=== PATIENT | male | born 1990 | race Hispanic/Latino ===

== ENCOUNTER 2016-10-01 11:26 | Inpatient (IN) | payer SELFPAY ==
--- NOTE | 2016-10-01 12:33 | ED PDOC ---
HPI: Psych/Substance Abuse Time Seen by Provider: 10/01/16 12:07 Chief Complaint (Nursing): Psychiatric Evaluation Chief Complaint (Provider): Crisis Evaluation History Per: Patient History/Exam Limitations: no limitations Onset/Duration Of Symptoms: Unknown Current Symptoms Are (Timing): Still Present Suicide/Self Injury Attempted (Context): None Modifying Factor(s): None Severity: Mild Additional Complaint(s): Patient is a 25 year old male brought in by EMS for a crisis evaluation status post [place] the [place]. As per EMS, patient was found in hospital socks without shoes and per EMS, patient apparently eloped from a hospital in [place]. Upon arrival, he denies suicidal ideation, homicidal ideation, hearing voices, or hallucinations. Patient states that he is not homeless and he lives "in many places." Patient states that he does not take any meds at home. PMD: none Past Medical History Reviewed: Historical Data, Nursing Documentation, Vital Signs Vital Signs: Last Vital Signs Temp 98.3 F 10/01/16 11:40 Pulse 103 H 10/01/16 11:40 Resp 20 10/01/16 11:40 BP 158/99 H 10/01/16 11:40 Pulse Ox 100 10/01/16 11:40 - Medical History PMH: No Chronic Diseases - Surgical History Surgical History: No Surg Hx - Family History Family History: States: No Known Family Hx - Living Arrangements Living Arrangements: With Family - Social History Current smoker - smoking cessation education provided: No Alcohol: None Drugs: Denies - Home Medications Home Medications: Ambulatory Orders Medication Instructions Recorded No Known Home Med 10/01/16 - Allergies Allergies/Adverse Reactions: Allergies Allergy/AdvReac Type Severity Reaction Status Date / Time No Known Allergies Allergy Verified 10/01/16 11:58 Review of Systems ROS Statement: Except As Marked, All Systems Reviewed And Found Negative Constitutional: Negative for: Fever Respiratory: Negative for: Cough Gastrointestinal: Negative for: Nausea, Vomiting Psych: Positive for: Other (EDP). Negative for: Psychosis (denies auditory or visual hallucinations), Suicidal ideation (denies SI or HI) Physical Exam - Reviewed Nursing Documentation Reviewed: Yes Vital Signs Reviewed: Yes - Physical Exam Appears: Positive for: Well, Non-toxic, No Acute Distress Head Exam: Positive for: ATRAUMATIC, NORMAL INSPECTION, NORMOCEPHALIC Skin: Positive for: Normal Color, Warm, DRY Eye Exam: Positive for: Normal appearance, EOMI Neck: Positive for: Normal, Painless ROM Cardiovascular/Chest: Positive for: Regular Rate, Rhythm. Negative for: Gallop , Murmur Respiratory: Positive for: Normal Breath Sounds. Negative for: Accessory Muscle Use, Rhonchi, Respiratory Distress Extremity: Positive for: Normal ROM, Swelling (bilateral non-pitting pedal edema ), Other (slight erythema to feet bilaterally with no cellulitis ) Neurologic/Psych: Positive for: Alert, Oriented, Mood/Affect (anxious) - Laboratory Results Result Diagrams: 10/01/16 13:30 10/01/16 13:30 - ECG O2 Sat by Pulse Oximetry: 100 (RA) Pulse Ox Interpretation: Normal Medical Decision Making Medical Decision Making: Time: 12:10 Impression: Crisis Eval Plan: Alcohol Serum CMP Drug Screen CBC 1:1 Observation for risk of elopement UA Crisis Eval Admit to ED observation Patient initially refused to have labs drawn unless we contact his stock pitcher in [facility] for her permission. Patient does not have contact information for his stock pitcher. He was eventually able to be redirected and did allow for blood draw. He also provided contact information for his brother, Bear [phone]. Message was left for brother who called back and informed PA that patient went missing one week ago and he nor his parents have not heard from him until today. Brother states patient's father will come to ED. Scribe Attestation: Documented by Wallace Nichols acting as a scribe for Heidi Magana. Provider Attestation: All medical record entries made by the Scribe were at my direction and personally dictated by me. I have reviewed the chart and agree that the record accurately reflects my personal performance of the history, physical exam, medical decision making, and the department course for this patient. I have also personally directed, reviewed, and agree with the discharge instructions and disposition. ED OBSERVATION Date of observation admission: 10/01/16 Time of observation admission: 12:36 - Observation admission statement Patient is being placed in observation because:: EDP, elopement risk, monitor patient pending medical and psychiatric evaluation. - Goals of Observation Goals of observation are:: EDP, elopement risk, monitor patient pending medical and psychiatric evaluation. - Progress Note Progress Note: 10/01/16 14:57 Labs are resulted. Patient is not asleep, arousable. Pending urine collection and crisis eval. 10/01/16 16:25 Patient is asleep but arousable, seen by crisis 10/01/16 19:00 Patient was seen by crisis counselor. As per counselor and Dr. Pino, psychiatrist admissions rn, patient does meet criteria for admission. He agrees to stay and sign himself in. Patient is medically stable for psychiatric admission. 10/01/16 19:58 Patient's father arrived at Hospital and spoke with crisis counselor at length. 10/01/16 21:25 Patient is sleeping, arousable, vital signs stable. He is stable for transfer to floor. Disposition - Clinical Impression Clinical Impression: Schizophrenia - Patient ED Disposition Is Patient to be Admitted: Yes - Disposition Disposition Time: 21:23 Condition: FAIR - Pt Status Changed To: Hospital Disposition Of: Inpatient - Admit Certification Admit to Inpatient:: After my assessment, the patient will require hospitalization for at least two midnights. This is because of the severity of symptoms shown, intensity of services needed, and/or the medical risk in this patient being treated as an outpatient. - POA Present On Arrival: None Results - Lab Results Lab Results: 10/01/16 10/01/16 16:44 13:30 WBC 12.7 H RBC 4.72 Hgb 13.9 Hct 40.9 MCV 86.5 MCH 29.4 MCHC 34.0 RDW 14.2 Plt Count 330 MPV 9.8 Neut % (Auto) 72.9 Lymph % (Auto) 15.4 L [place] % (Auto) 10.2 H Eos % (Auto) 1.1 Baso % (Auto) 0.4 Neut # 9.3 H Lymph # 2.0 Llano # 1.3 H Eos # 0.1 Baso # 0.1 Sodium 143 Potassium 3.9 Chloride 104 Carbon Dioxide 25 Anion Gap 18 BUN 8 L Creatinine 0.8 Est GFR ( Amer) > 60 Est GFR (Non-Af Amer) > 60 Random Glucose 103 Calcium 9.5 Total Bilirubin 0.7 AST 76 H ALT 66 Alkaline Phosphatase 82 Total Protein 7.6 Albumin 4.3 Globulin 3.3 Albumin/Globulin Ratio 1.3 Urine Color Yellow Urine Clarity Clear Urine pH 7.0 Ur Specific Grant 1.008 Urine Protein Negative Urine Glucose (UA) Neg Urine Ketones Trace Urine Blood Negative Urine Nitrate Negative Urine Bilirubin Negative Urine Urobilinogen 0.2-1.0 Ur Leukocyte Esterase Neg Urine RBC (Auto) < 1 Urine Microscopic WBC 1 Urine Bacteria Rare Urine Opiates Screen Negative Urine Methadone Screen Negative Ur Barbiturates Screen Negative Ur Phencyclidine Scrn Negative Ur Amphetamines Screen Negative U Benzodiazepines Scrn Negative U Oth Cocaine Metabols Negative U Cannabinoids Screen Negative Alcohol, Quantitative < 10
[2016-10-01 13:58] LABS: BASO # 0.1 K/uL (0.0-0.2); BASO % 0.4 % (0.0-2.0); EOS # 0.1 K/uL (0.0-0.7); EOS % 1.1 % (0.0-4.0); HEMATOCRIT 40.9 % (35.0-51.0); LYMPH % 15.4 % (20.0-40.0); MEAN CELL VOLUME 86.5 fl (80.0-94.0); MEAN CORPUSCULAR HEMOGLOBIN 29.4 pg (27.0-31.0); MEAN PLATELET VOLUME 9.8 fl (7.2-11.7); MONO # 1.3 K/uL (0.0-0.8); MONO % 10.2 % (0.0-10.0); NEUT # 9.3 K/uL (1.8-7.0); NEUT % 72.9 % (50.0-75.0); NRBC % 0.1 % (0.0-0.0); RED CELL DISTRIBUTION WIDTH 14.2 % (11.5-14.5); WHITE BLOOD COUNT 12.7 K/uL (4.8-10.8)
[2016-10-01 14:06] LABS: ALB/GLOB RATIO 1.3 (1.0-2.1); ALCOHOL SERUM < 10 mg/dl (0-10); ALKALINE PHOSPHATASE 82 U/L (38-126); ALT/SGPT 66 U/L (21-72); AST/SGOT 76 U/L (17-59); BILIRUBIN,TOTAL 0.7 mg/dl (0.2-1.3); BLOOD UREA NITROGEN 8 mg/dl (9-20); CALCIUM 9.5 mg/dL (8.4-10.2); CARBON DIOXIDE 25 mmol/L (22-30); CHLORIDE 104 mmol/L (98-107); GFR AFRICAN-AMERICAN > 60; GLUCOSE,RANDOM 103 mg/dL (75-110); POTASSIUM 3.9 MMOL/L (3.6-5.0); SODIUM 143 mmol/l (132-148); TOTAL PROTEIN 7.6 G/DL (6.3-8.2)
[2016-10-01 16:49] LABS: RBC URINE < 1 /hpf (0-3); URINE BACTERIA RARE (<OCC); URINE BILIRUBIN NEGATIVE (NEGATIVE); URINE BLOOD NEGATIVE (NEGATIVE); URINE COLOR YELLOW (YELLOW); URINE GLUCOSE (UA) NEG (Normal); URINE KETONE TRACE mg/dL (NEGATIVE); URINE LEUKOCYTE ESTERASE NEG Leu/uL (Negative); URINE PROTEIN NEGATIVE (NEGATIVE); URINE UROBILINOGEN 0.2-1.0 mg/dL (0.2-1.0); WBC URINE 1 /hpf (0-5)
[2016-10-01 19:31] VITALS: O2SAT 100
[2016-10-01] MEDS ORDERED: DiphenhydrAMINE 50 mg/ml Inj IM PRN (23:18)
[2016-10-01] MEDS ORDERED: Alum-Mag Hydrox-Simethicone Susp (30 mL) PO PRN (23:18)
[2016-10-01] MEDS ORDERED: Magnesium Hydroxide Susp 30 ml UD PO PRN (23:18)
[2016-10-02 07:39] LABS: T4 7.17 ug/dl (5.5-11.0)
[2016-10-02 07:53] LABS: THYROID STIMULATING HORMONE 0.56 mIU/ML (0.46-4.68)
--- NOTE | 2016-10-02 14:17 | PCM.PSYCH ---
Initial Psychiatric Evaluation - Initial Psychiatric Evaluation Type of Admission: Voluntary Legal Status: Capacity Chief Complaint (in patient's own words): i am fit to make my own decisions and i don't want to be here Patient's Reaction to Hospitalization: "be careful what you say and write because of litigation" History of Present Illness and Precipitating Events: 25 yo male who [facility] and ended up in [place] in hospital attire without shoes and was brought to the er. pt is a "missing person" for the last week. he states he was only in hospital for "excessive celebration" his speech is rapid, he is grandiose and states he is a victim of a hostile workplace that has turned into a case where he is being accused of harrassment. he continues to mention that he is trying to work to make money to get back together with his fiancee. 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 he does not believe he has a mental illness. he reports that he only signed in so he could eat breakfast and then go home. he mentions that he might be prejudiced against " one druze person" but that doesn't make him mistrust the "other 3.5 million druze americans. he is paranoid about why team is asking for his bloodwork and mentions "i know you are checking my body temperature." Current Medications: Active Medications Generic Name Dose Route Start Last Admin Trade Name Adamq PRN Reason Stop Dose Admin Acetaminophen 650 mg 10/01/16 23:18 Tylenol 325mg Tab PO Q4 PRN pain nlevel 1-6 Al Hydrox/Mg Hydrox/Simethicone 30 ml 10/01/16 23:18 Maalox Plus 30 Ml PO Q4 PRN Dyspepsia Diphenhydramine HCl 50 mg 10/01/16 23:18 Benadryl PO Q6 PRN Extrapyramidal Symptoms Diphenhydramine HCl 50 mg 10/01/16 23:18 Benadryl IM Q6 PRN Extrapyramidal S/S Unable PO Haloperidol 5 mg 10/01/16 23:18 Haldol PO Q4 PRN Agitation Haloperidol Lactate 5 mg 10/01/16 23:18 Haldol IM Q4 PRN Agitation, Unable to Take PO Lorazepam 2 mg 10/01/16 23:18 Ativan PO Q4 PRN Anxiety/Agitation Lorazepam 2 mg 10/01/16 23:18 Ativan IM Q4 PRN Anxiety/Agitation,Unable PO Magnesium Hydroxide 30 ml 10/01/16 23:18 Milk Of Magnesia PO HS PRN Constipation Past Psychiatric History - Past Psychiatric History Previous Treatment History: Inpatient History of Abuse: does not answer History of ETOH/Drug Use: does not give answers. uds negative. admits to alcohol use History of Family Illness: does not answer Pertinent Medical Hx (Current Medical&Sleep Prob, Allergies): Allergies Allergy/AdvReac Type Severity Reaction Status Date / Time No Known Allergies Allergy Verified 10/01/16 11:58 No Known Home Med 10/01/16 Review of Systems - Psychiatric Psychiatric: As Per HPI Mental Status Examination - Personal Presentation Personal Presentation: Looks stated age - Affect Affect: Broad - Motor Activity Motor Activity: Calm - Reliability in Providing Information Reliability in Providing Information: Poor, due to altered mood - Speech Speech: Irrelevant - Mood Mood: Euphoric - Formal Thought Process Formal Thought Process: Loosening of associations, Flight of ideas - Hallucinations/Delusions Delusions: Granduer - Obsessions/Compulsions Obsessions: No Compulsions: No - Cognitive Functions Orientation: Person, Place, Situation, Time Sensorium: Alert Attention/Concentration: Easily distracted Abstract Thinking: As evidence by abstract perception of proverbs Estimate of Intelligence: Average Judgement: Imparied, as evidence by: Lack of insight into illness (denies needing help) Memory: Recent intact, as evidence by: Ability to recall events of the day, Remote intact, as evidenced by: Abilit to recall sig. life events - Risk Risk: Suicidal (denies suicidal thoughts), Elopement, Diminished functioning - Strength & Assets Inventory Strength & Assets Inventory: Intelligence - Limitations Limitations: Other (poor insight) DSM 5 DX - DSM 5 DSM 5 Diagnosis: bipolar disorder, manic - Recommended/Plan of Treatment Treatment Recommendations and Plan of Treatment: admit to 3[facility] for safety and observation gather collateral information provide supportive therapy adjust medications - start depakote to stabilize mood provide supportive therapy hospitalist consult will screen for involuntary admission at [facility] as pt has eloped from hospital, has been refusing treatment and is in a manic state with limited insight and poor impulse control and is a danger to self and possibly others. Projected ELOS: 7-10 days Prognosis: guarded
--- NOTE | 2016-10-02 16:51 | CP.PCM.CON ---
History of Present Illness - History of Present Illness History of Present Illness: 25 yo male to psyche unit because of paranoid delusion. Escaped from [facility]. Review of Systems - Review of Systems All systems: reviewed and no additional remarkable complaints except (aside from those mentioned above, 12 point system review were negative by me) Past Patient History - Past Social History Smoking Status: Current Some Days Smoker Alcohol: Occasional Drugs: Denies - CARDIAC Hx Cardiac Disorders: No - PULMONARY Hx Respiratory Disorders: No - NEUROLOGICAL Hx Neurological Disorder: No - HEENT Hx HEENT Problems: No - RENAL Hx Chronic Kidney Disease: No - ENDOCRINE/METABOLIC Hx Endocrine Disorders: No - HEMATOLOGICAL/ONCOLOGICAL Hx Blood Disorders: No - INTEGUMENTARY Hx Dermatological Problems: No - MUSCULOSKELETAL/RHEUMATOLOGICAL Hx Musculoskeletal Disorders: No - GENITOURINARY/GYNECOLOGICAL Hx Genitourinary Disorders: No - PSYCHIATRIC Hx Substance Use: No - ANESTHESIA Hx Anesthesia: No Meds Allergies/Adverse Reactions: Allergies Allergy/AdvReac Type Severity Reaction Status Date / Time No Known Allergies Allergy Verified 10/01/16 11:58 - Medications Medications: Current Medications Acetaminophen (Tylenol 325mg Tab) 650 mg PO Q4 PRN PRN Reason: pain nlevel 1-6 Al Hydrox/Mg Hydrox/Simethicone (Maalox Plus 30 Ml) 30 ml PO Q4 PRN PRN Reason: Dyspepsia Diphenhydramine HCl (Benadryl) 50 mg PO Q6 PRN PRN Reason: Extrapyramidal Symptoms Diphenhydramine HCl (Benadryl) 50 mg IM Q6 PRN PRN Reason: Extrapyramidal S/S Unable PO Divalproex Sodium (Depakote Dr(*Bid*)) 500 mg PO BID HENRY Haloperidol (Haldol) 5 mg PO Q4 PRN PRN Reason: Agitation Haloperidol Lactate (Haldol) 5 mg IM Q4 PRN PRN Reason: Agitation, Unable to Take PO Lorazepam (Ativan) 2 mg PO Q4 PRN PRN Reason: Anxiety/Agitation Lorazepam (Ativan) 2 mg IM Q4 PRN PRN Reason: Anxiety/Agitation,Unable PO Magnesium Hydroxide (Milk Of Magnesia) 30 ml PO HS PRN PRN Reason: Constipation Physical Exam - Constitutional Appears: No Acute Distress - Head Exam Head Exam: ATRAUMATIC - Eye Exam Eye Exam: absent: Scleral icterus - ENT Exam ENT Exam: Mucous Membranes Moist - Neck Exam Neck exam: Negative for: Meningismus - Respiratory Exam Respiratory Exam: absent: Rhonchi, Wheezes, Respiratory Distress - Cardiovascular Exam Cardiovascular Exam: REGULAR RHYTHM, +S1, +S2 - GI/Abdominal Exam GI & Abdominal Exam: Soft. absent: Tenderness - Rectal Exam Rectal Exam: Deferred - Neurological Exam Neurological exam: Alert, Oriented x3 - Psychiatric Exam Psychiatric exam: Normal Affect - Skin Skin Exam: Dry, Intact Results - Vital Signs Recent Vital Signs: Last Vital Signs Temp 97.9 F 10/02/16 09:17 Pulse 91 H 10/02/16 09:17 Resp 20 10/02/16 09:17 BP 145/96 H 10/02/16 09:17 Pulse Ox 100 10/01/16 21:31 - Labs Result Diagrams: 10/01/16 13:30 10/01/16 13:30 Labs: Laboratory Results - last 24 hr 10/02/16 06:58 Triglycerides 80 Cholesterol 96 LDL Cholesterol Direct 45 HDL Cholesterol 35 Thyroxine (T4) 7.17 TSH 3rd Generation 0.56 Assessment & Plan (1) Schizophrenia Status: Acute Comment: psyche is managing
[2016-10-02] MEDS: Divalproex 500 mg DR(BID formulation) PO SCH (17:29)
[2016-10-03] MEDS: Divalproex 500 mg DR(BID formulation) PO SCH (09:28)
--- NOTE | 2016-10-03 11:02 | PCM.PYCHPN ---
Psychiatric Progress Note - Psychiatric Progress Note Patient seen today, length of contact: discussed with team Patient Chief Complaint: no c/o Problems Identified/Issues Discussed: refusing medications. has been accepted at [facility]. he is somewhat grandiose, rapid speech. visual in the milieu. Medication Change: No Medical Record Reviewed: Yes Mental Status Examination - Cognitive Function Orientation: Person, Place, Situation, Time Memory: Intact Attention: WNL Concentration: WNL Association: WNL Fund of Knowledge: WN Decription of patient's judgement and insights: poor insight - Mood Mood: Euphoric - Affect Affect: Broad - Speech Speech: Loud - Formal Thought Process Formal Thought Process: Loosening of associations, Flight of ideas Psychotic Thoughts and Behaviors: grandiose, manic - Suicidal Ideation Suicidal Ideation: No - Homicidal Ideation Homicidal Ideation: No Goal/Treatment Plan - Goal/Treatment Plan Need for Continued Stay: Remain at risks for inpatient hospitalization, Severe functional impairment Progress Toward Problem(s) and Goals/Treatment Plan: bipolar disorder, manic pt has been accepted at [facility] and awaiting transfer will continue to encourage pt to take depakote
[2016-10-04] MEDS: Divalproex 500 mg DR(BID formulation) PO SCH ×3 (09:00→17:03)
[2016-10-04 09:04] VITALS: RESP 18
--- NOTE | 2016-10-04 12:02 | RAD ---
HISTORY: Commitment COMPARISON: No prior. FINDINGS: LUNGS: No active pulmonary disease. PLEURA: No significant pleural effusion identified, no pneumothorax apparent. CARDIOVASCULAR: Normal. OSSEOUS STRUCTURES: No significant abnormalities. VISUALIZED UPPER ABDOMEN: Normal. OTHER FINDINGS: None. IMPRESSION: No active disease.
--- NOTE | 2016-10-04 14:25 | CARD ---
APPROVED REPORT EKG Measurement Heart [id number] <Conclusion> Normal sinus rhythm Normal ECG
--- NOTE | 2016-10-04 14:48 | PCM.PYCHDC ---
Mental Status Examination - Mental Status Examination Orientation: Person, Place, Situation, Time Memory: Intact Mood: Euphoric Affect: Broad Speech: Loud Attention: Poor Concentration: Poor Association: Loose Fund of Knowledge: WNL Formal Thought Process: Loosening of associations Description of patient's judgement and insight: poor insight Psychotic Thoughts and Behaviors: grandiose, manic Suicidal Ideation: No Current Homicidal Ideation?: No Plan: pt denies any si/hi currently Discharge Summary - Discharge Note Reason for Hospitalization: no complaints Psychiatric History (includes Medical, Family, Personal Hx): two recent brief hospitalizations Consultations:: List each consultation separately and include: 1. Reason for request. 2. Findings. 3. Follow-up Consultations: seen by hospitalist Summary of Hospital Course include:: 1. Description of specific treatment plan utilized for patients during their course of treatmen. 2. Summarize the time- course for resolution of acute symptoms and/or regressed behaviors. 3. Describe issues identified and worked on during hospitalization. 4. Describe medication utilized. 5. Describe medical problems identified and treated. 6. Reassessment of suicide risk Summary of Hospital Course: 25 yo male who apparently eloped from [facility] and ended up in [place] in hospital attire without shoes and was brought to the er. pt is a "missing person" for the last week. he states he was only in hospital for "excessive celebration" his speech is rapid, he is grandiose and states he is a victim of a hostile workplace that has turned into a case where he is being accused of harrassment. he continues to mention that he is trying to work to make money to get back together with his fiancee. he argues with the way questions are phrased and threatens litigation against this literary writer. he does not believe he has a mental illness. he reports that he only signed in so he could eat breakfast and then go home. he mentions that he might be prejudiced against " one anabaptism person" but that doesn't make him mistrust the "other 3.5 million anabaptism americans. he is paranoid about why team is asking for his bloodwork and mentions "i know you are checking my body temperature." hospital course admitted to [facility] and oriented to the unit. placed on routine safety protocols. seen by treatment team and signed 48 hour notice. pt was with grandiose, disorganized thoughts and mood lability. he was seen by screener at [facility] who found the pt to meet criteria for involuntary hospitalization. he was refusing the mood stabilizing medications that were ordered. he denied having a mental illness and denied any suicidal or homicidal thoughts. - Final Diagnosis (DSM 5) Condition upon Discharge: GUARDED DSM 5: bipolar disorder, manic with psychotic features Disposition: HOME/ ROUTINE Follow-up Treatment Plan: pt to follow up with the treatment team at [facility] - Smoking Cessation Smoking Cessation Medication prescribed: No - Antipsychotic Medications Pt discharged on 2 or more routine antipsychotic medications: No
[2016-10-04 16:53] VITALS: BP 130/71; PULSE 78; TEMP 97.1
== END 2016-10-05 04:45 | disposition short-term general hospital (02) | DRG 885 ==
LOC: H.ER 11:26 → H.EROBSV 12:30 → OBSVTOIN 19:21 → H.ERHOLD 19:40 → H.PSYCH 22:51
PROVIDERS: ADMIT Psychiatry & Neurology Psychiatry; ATTEND Psychiatry & Neurology Psychiatry
PROC: GZ51ZZZ Individual Psychotherapy, Behavioral (ICD-10-PCS; 2016-10-02)
PROC: GZHZZZZ Group Psychotherapy (ICD-10-PCS; principal; 2016-10-03)
DX: F31.2 Bipolar disorder, current episode manic severe with psychotic features (principal); F22 Delusional disorders; F20.9 Schizophrenia, unspecified; Z87.891 Personal history of nicotine dependence